=== PATIENT | male | born 1955 | race Caucasian/White ===

== ENCOUNTER 2024-10-10 16:32 | Inpatient (IN) | payer OTHER ==
[~2024-10-10] VITALS: Ht 160 cm; Wt 94.8 kg
[2024-10-10] MEDS ORDERED: ATORVASTATIN CA10 MG PO (16:44)
[2024-10-10] MEDS ORDERED: VALSARTAN-HCTZ1 EAC3 PO (16:45)
[2024-10-10] MEDS ORDERED: CIALIS5 MG PO (16:45)
[2024-10-10] MEDS ORDERED: LOSARTAN-HCTZ1 EAC1 PO (16:45)
--- NOTE | 2024-10-10 16:45 | NUR ---
PTE ALERTA Y ORIENTADO X3 EN COMPANIA DE FAMILIAR QUIEN REFIERE PTE SE [facility] Y URIAH DE CARIDADECERA MASON QUE PUEDE SER FALLO RENAL ETAPA 4, LO ENVIA A KHANH DE EMERGENCIAS PARA QUE LE REALICEN ESTUDIO DE SONOGRAMA RENAL. AL MOMENTO DE TRIAGE PTE BUSCA ORDEN MEDICA. SE ORIENTA A ENTREGAR LA MISMA SCOOBY VEZ ENCONTRADA. SE MIDEN SV Y SE UBICA.
--- NOTE | 2024-10-10 17:21 | NUR ---
SE LE EXTRAEN MUESTRAS BAJO MEDIDAS ASEPTICAS Y SE NOTIFICA SONOGRAMA.
[2024-10-10 17:29] LABS: HEMATOCRIT 37.9 % (39.0-48.0); HEMOGLOBIN 12.6 g/dL (13-16.00); MEAN CORPUSCULAR HEMOGLOBIN 29.5 pg (27.00-32.0); MEAN CORPUSCULAR HGB CONC 33.2 g/dl (32.0-36.0); PLATELET COUNT 169 K/uL (150-450); RED BLOOD COUNT 4.26 M/uL (4.00-6.00); RED CELL DISTRIBUTION WIDTH 13.3 % (11.5-14.5)
[2024-10-10 17:50] LABS: INR 1.06; PARTIAL THROMBOPLASTIN TIME 25.9 SECONDS (22.0-34.0); PROTHROMBIN TIME 11.5 SECONDS (9.0-11.5)
[2024-10-10 17:53] LABS: ALBUMIN 3.8 gm/dL (3.4-5.0); BILIRUBIN TOTAL 0.56 mg/dL (0.3-1.2); CALCIUM 9.1 mg/dL (8.5-10.1); CREATININE SERUM 3.31 mg/dL (0.70-1.30); GFR 18.51; GLOBULINA 3.1 G/DL (2.4-3.5); POTASSIUM 4.01 mEq/L (3.5-5.1); TOTAL PROTEIN 6.9 gm/dL (6.4-8.2)
[2024-10-10 18:02] LABS: URINE APPEARANCE Clear; URINE BILIRRUBIN Negative (NEGATIVE); URINE BLOOD Negative; URINE COLOR Yellow; URINE GLUCOSE Negative (NEGATIVE); URINE KETONE Trace (NEGATIVE); URINE LEUKOCYTE Trace; URINE NITRATE Negative; URINE PROTEIN Negative (NEGATIVE); URINE UROBILINOGEN 0.2 E.U./dl
[2024-10-10 18:07] LABS: URINE BACTERIA 17.1 uL (0.0-1933); URINE CAST 1.61 uL (0.0-1.40); URINE EPITHELIAL CELLS 12.9 uL (0.0-38.8); URINE WBC 24.6 uL (0.0-23.2)
[2024-10-10] MEDS ORDERED: 0.9 % SODIUM CHLORIDE 1,000 ML IV SCH (22:00)
[2024-10-10] MEDS ORDERED: PANTOPRAZOLE SODIUM 40 MG/VIAL VIAL IV SCH (22:05)
[2024-10-10] MEDS ORDERED: ACETAMINOPHEN 500 MG GEL..CAP PO PRN (22:15)
[2024-10-11 02:00] VITALS: BP 122/67
[2024-10-11 05:32] LABS: ALBUMIN 3.3 gm/dL (3.4-5.0); BILIRUBIN TOTAL 0.41 mg/dL (0.3-1.2); CALCIUM 8.7 mg/dL (8.5-10.1); CREATININE SERUM 3.09 mg/dL (0.70-1.30); GFR 20.04; GLOBULINA 2.6 G/DL (2.4-3.5); POTASSIUM 3.87 mEq/L (3.5-5.1); TOTAL PROTEIN 5.9 gm/dL (6.4-8.2)
[2024-10-11 08:34] VITALS: BP 100/51
[2024-10-11] MEDS ORDERED: ATORVASTATIN CALCIUM 10 MG TABLET PO SCH (09:00)
[2024-10-11 16:00] VITALS: BP 135/71; O2SAT 100
[2024-10-11] MEDS ORDERED: CIPROFLOXACIN IN 5 % DEXTROSE 400 MG/200 ML PIGGYBAG IV NR (17:30)
[2024-10-11] MEDS ORDERED: MIDAZOLAM HCL 2 MG/2 ML VIAL IV PUSH ONE (17:30)
[2024-10-11] MEDS ORDERED: fentaNYL CITRATE 50 MCG/ML AMPUL IV PUSH ONE (17:30)
[2024-10-12 00:26] VITALS: BP 117/62
[2024-10-12 07:04] LABS: CALCIUM 8.8 mg/dL (8.5-10.1); CREATININE SERUM 2.71 mg/dL (0.70-1.30); GFR 23.31; POTASSIUM 4.81 mEq/L (3.5-5.1)
[2024-10-12 08:40] VITALS: BP 98/56; O2SAT 96
== END 2024-10-12 14:10 | disposition home or self-care (01) | DRG 683 ==
LOC: ER 16:35 → MEDI 22:05
PROVIDERS: General Practice; ADMIT Internal Medicine; ATTEND Internal Medicine
PROC: BT43ZZZ Ultrasonography of Bilateral Kidneys (ICD-10-PCS; principal; 2024-10-10)
PROC: BW21ZZZ Computerized Tomography (CT Scan) of Abdomen and Pelvis (ICD-10-PCS; 2024-10-10)
PROC: 0T9130Z Drainage of Left Kidney with Drainage Device, Percutaneous Approach (ICD-10-PCS; 2024-10-11)
DX: N17.9 Acute kidney failure, unspecified (principal); C82.03 Follicular lymphoma grade I, intra-abdominal lymph nodes; C85.90 Non-Hodgkin lymphoma, unspecified, unspecified site; N13.1 Hydronephrosis with ureteral stricture, not elsewhere classified; I44.7 Left bundle-branch block, unspecified; I25.10 Atherosclerotic heart disease of native coronary artery without angina pectoris; I13.10 Hypertensive heart and chronic kidney disease without heart failure, with stage 1 through stage 4 chronic kidney disease, or unspecified chronic kidney disease; N18.9 Chronic kidney disease, unspecified